=== PATIENT | male | born 1955 | race African-American/Black ===

== ENCOUNTER 2018-01-01 16:57 | Inpatient (IN) | payer SELFPAY ==
[~2018-01-01] VITALS: Ht 167.6 cm; Wt 77.7 kg
[2018-01-01] MEDS ORDERED: BACITRACIN ZINC OINT UDPKT TOP ONE (20:15)
[2018-01-01 21:43] LABS: BASOPHILS % 0.6 % (0.0-2.0); EOSINOPHILS % 0.4 % (0.0-5.0); HEMATOCRIT. 42.9 % (42.0-52.0); HEMOGLOBIN. 15.4 g/dL (14.0-18.0); LYMPHOCYTES % 15.9 % (20.0-50.0); MEAN CORPUSCULAR HEMOGLOBIN 32.4 pg (28.0-32.0); MEAN CORPUSCULAR VOLUME 90.2 fL (80.0-94.0); MEAN PLATELET VOLUME 8.6 fl (7.4-10.4); MONOCYTES % 10.1 % (2.0-8.0); PLATELET 163 x1000/uL (130-400); RED BLOOD CELL COUNT 4.75 mill/uL (4.7-6.1); RED CELL DISTRIBUTION WIDTH 12.6 % (11.6-14.6)
[2018-01-01 21:46] LABS: CHLORIDE 101 mEq/L (98-107)
[2018-01-01 21:50] LABS: ETHANOL BLOOD 135 mg/dL
[2018-01-01] MEDS ORDERED: ASPIRIN 81MG TABLET PO ONE (22:00)
[2018-01-01 22:09] LABS: CLARITY URINE CLEAR (CLEAR); COLOR URINE YELLOW (YELLOW); KETONES URINE NEGATIVE (NEGATIVE); LEUKOCYTE ESTERASE URINE NEGATIVE (NEGATIVE); NITRITE URINE NEGATIVE (NEGATIVE); OCCULT BLOOD URINE TRACE (NEGATIVE); PH URINE 5.5 (4.5-8.0); PROTEIN URINE TRACE (NEGATIVE); SPECIFIC GRAVITY URINE 1.008 (1.005-1.030); UROBILINOGEN URINE 0.2 E.U./dL (0.2-1.0)
[2018-01-01 22:24] LABS: *AMPHETAMINES SCREEN URINE NEGATIVE (NEGATIVE)
[2018-01-01 22:25] LABS: *BARBITURATES SCREEN URINE NEGATIVE (NEGATIVE); *BENZODIAZEPINES SCREEN URINE NEGATIVE (NEGATIVE); *COCAINE SCREEN URINE NEGATIVE (NEGATIVE); CANNABINOID URINE SCREEN PRESUMTIVE POSITIVE (NEGATIVE); METHADONE URINE SCREEN NEGATIVE (NEGATIVE); OPIATES URINE SCREEN NEGATIVE (NEGATIVE); PHENCYCLIDINE URINE SCREEN NEGATIVE (NEGATIVE)
[2018-01-02] VITALS (7 sets, daily range): BP systolic 116–202; BP diastolic 56–119
[2018-01-02] MEDS ORDERED: LABETALOL HCL 20MG/4ML CARPUJECT IV ONE (00:30)
[2018-01-02] MEDS ORDERED: LABETALOL 5MG/ML SYR 20 MG/4 ML SYRINGE IV SCH (00:49)
[2018-01-02] MEDS ORDERED: CLONIDINE 0.1MG TABLET PO STA (03:48)
[2018-01-02] MEDS ORDERED: ASPIRIN 81MG TABLET PO SCH (09:00)
[2018-01-02] MEDS: CLONIDINE 0.2MG TABLET PO PRN ×2 (09:27→16:30)
[2018-01-02] MEDS ORDERED: ACETAMINOPHEN 325MG TABLET PO PRN (09:45)
[2018-01-02] MEDS ORDERED: DIPHENHYDRAMINE 50MG/ML VIAL IV PRN (09:45)
[2018-01-02] MEDS ORDERED: LORAZEPAM 2MG/ML CPJ IV PRN (09:45)
[2018-01-02] MEDS ORDERED: IPRATROPIUM/ALBUTEROL 0.5-3(2.5)MG/3ML NEB INH PRN (09:45)
[2018-01-02] MEDS ORDERED: MAGNESIUM/ALUMINUM HYDROXIDE/SIMETHICONE 30ML UDC PO PRN (09:45)
[2018-01-02] MEDS ORDERED: NA PHOS,M-B/NA PHOS,DI-BA ENEMA 118ML PR PRN (09:45)
[2018-01-02] MEDS ORDERED: CLONIDINE 0.1MG TABLET PO PRN (09:45)
[2018-01-02] MEDS ORDERED: DOCUSATE SODIUM 100MG CAPSULE PO PRN (09:45)
[2018-01-02] MEDS ORDERED: GUAIFENESIN 200MG/10ML SUGAR FREE UDC PO PRN (09:45)
[2018-01-02] MEDS ORDERED: ENOXAPARIN 40MG/0.4ML SYR SUBCUT SCH (10:00)
[2018-01-02] MEDS ORDERED: MVI, ADULT NO.1 10 ML, FOLIC ACID 1 MG, THIAMINE HCL 100 MG in SODIUM CHLORIDE 0.9% 1,0... IV SCH ×4 (11:00)
[2018-01-02] MEDS: SODIUM CHLORIDE 0.45% 1,000 ML IV SCH ×2 (11:02→22:51)
[2018-01-02] MEDS: HYDROCODONE/ACETAMINOPHEN 5/325MG TABLET PO PRN ×2 (11:02→16:31)
[2018-01-02 12:05] LABS: CHLORIDE 98 mEq/L (98-107)
[2018-01-02] MEDS ORDERED: POTASSIUM CHLORIDE 20MEQ TABLET SR PO NR (12:30)
[2018-01-02] MEDS ORDERED: AMLODIPINE 10MG TABLET PO SCH (21:30)
[2018-01-02] MEDS ORDERED: LISINOPRIL 10MG TABLET PO SCH (21:30)
[2018-01-02] MEDS ORDERED: CLONIDINE 0.3MG TABLET PO PRN (21:30)
[2018-01-03] VITALS: BP 188/112
[2018-01-03 02:25] LABS: CREATINE KINASE MB FRACTION 2.4 ng/mL (0.5-3.6)
[2018-01-03 03:00] VITALS: BP 162/107
[2018-01-03] MEDS: HYDROCODONE/ACETAMINOPHEN 5/325MG TABLET PO PRN (03:00)
[2018-01-03 04:00] VITALS: BP 160/94
[2018-01-03] MEDS ORDERED: ASPIRIN 81MG EC TABLET PO SCH (09:00)
== END 2018-01-03 08:21 | disposition home or self-care (01) | DRG 422 ==
LOC: ER 17:16 → 6WST 01-02 00:15 → ENRESERV 01-02 03:46 → CANRESERV 01-02 03:46 → ENRESERV 01-02 04:12
PROVIDERS: ADMIT Internal Medicine; ATTEND Internal Medicine
DX: E86.0 Dehydration (principal); I10 Essential (primary) hypertension; F10.129 Alcohol abuse with intoxication, unspecified; S00.81XA Abrasion of other part of head, initial encounter; W18.39XA Other fall on same level, initial encounter; Y93.89 Activity, other specified; Y92.89 Other specified places as the place of occurrence of the external cause; Y99.8 Other external cause status; Z91.19 Patient's noncompliance with other medical treatment and regimen
CPT/HCPCS: 36415; 70450; 71045; 80048; 80053; 80305; 81003; 82550; 82553; 83036; 83880; 84484; 85025; 85379; 93005; 96365; 96366; 96375; 99285; G0482; J1650; J3411; J3490; J7030